=== PATIENT | female | born 1985 | race Caucasian/White ===

== ENCOUNTER 2025-04-16 18:35 | Emergency (ER) | payer BC ==
[2025-04-16 18:48] VITALS: TEMP 98.2
[2025-04-16] MEDS ORDERED: TORAdol 30 mg Injection ONE (19:04)
[2025-04-16] MEDS ORDERED: PROTONIX 40 MG IV IV ONE (19:05)
[2025-04-16] MEDS: TORAdol 30 mg Injection IV ONE (19:13)
[2025-04-16] MEDS: PROTONIX 40 MG IV IV ONE (19:13)
[2025-04-16 19:17] LABS: BASOPHIL % 0.4 % (0.1-1.2); Basophil (Absolute #) 0.02 x10^3/uL (0.01-0.08); Eosinophil (Absolute #) 0.03 x10^3/uL (0.04-0.36); Hematocrit 46.6 % (34.1-44.9); Hemoglobin 15.5 g/dL (11.2-15.7); IMMATURE GRAN # 0.02 x10^3u/L (0.001-0.031); IMMATURE GRAN % 0.4 % (0.001-0.429); Lymphocyte (Absolute #) 1.44 x10^3/uL (1.18-3.74); Mean Corpuscular Hemoglobin 28.5 pg (25.6-32.2); Mean Corpuscular Hgb Concent. 33.3 g/dL (32.2-35.5); Monocyte (Absolute #) 0.45 x10^3/uL (0.24-0.86); NUCLEATED RBC # 0.00 x10^3u/L (0.00-0.012); NUCLEATED RBC % 0.0 % (0.00-0.2); Platelet Count 243 x10^3/uL (182-369); Red Blood Count 5.43 x10^6/uL (3.93-5.22); White Blood Count 5.6 x10^3/uL (3.98-10.04)
[2025-04-16 19:23] LABS: Glucose, Urine Negative (Negative); Protein,Urine Dip Trace (Negative); RBC 0-2 /HPF (0-5); WBC 0-2 /HPF (0-5)
[2025-04-16 19:30] LABS: Calcium 9.6 mg/dL (8.4-10.2); Carbon Dioxide 27.0 mmol/L (22-30); Creatinine 1 0.78 mg/dL (0.52-1.04); EST GLOMERULAR FILTRATION RATE 100.3 ML/MIN; Glucose 138.0 mg/dL (74-106); Potassium 4.6 mmol/L (3.5-5.1); SGOT/AST 53.0 U/L (14-36); SGPT/ALT 54.0 U/L (0-35); Total Protein 8.7 g/dL (6.3-8.2)
--- NOTE | 2025-04-16 19:30 | ERPHSYRPT ---
- History of Present Illness Time Seen by Provider: 04/16/25 19:24 Historian: patient Exam Limitations: no limitations Patient Subjective Stated Complaint: Pt. states, "I started vomiting on Tuesday. I hadn't had a bowel movement since Tuesday which isn't unsual for me. I thought I was constipated and that's why I was vomiting. I took a laxative early tuesday morning. Ever since, I have continued to vomit have loose stools and feel nauseated. I can't keep anything down. It hurts in my left side and into my lower back. My head hurts as well." Triage Nursing Assessment: Pt. ambulated to room without difficulty, A&Ox3, Skin P/W/D, Resp. even unlabored, Abdomen soft nontender with hyperactive bowel sounds. No edema. Mucous Membranes Dry. Able to move all four ext and speak full sentences. Physician History: Patient is a 39-year-old female history of hypertension cholecystectomy hysterectomy presents to our ED for evaluation of generalized bodyaches, vomiting, loose stools nausea left flank and lower abdominal pain. No trauma no fever. Symptoms are mild to moderate in intensity. No specific worsening or improving factors. Patient voices no other complaints or concerns at this time. Portions of this note were created with voice recognition technology. There may be grammatical, spelling, punctuation or sound alike errors Timing/Duration: day(s) (3 days) Activities at Onset: none Quality: aching Abdominal Pain Onset Location: flank Pain Radiation: back Severity of Pain-Max: moderate Severity of Pain-Current: mild Modifying Factors: Improves With: nothing Associated Symptoms: other (Body aches) Previous symptoms: no prior history Allergies/Adverse Reactions: No Known Drug Allergies Allergy (Verified 04/16/25 19:06) Home Medications: Lisinopril 10 mg [Zestril 10 MG] 10 mg PO DAILY 04/16/25 [History] Hx Tetanus, Diphtheria Vaccination/Date Given: No Hx Influenza Vaccination/Date Given: No Hx Pneumococcal Vaccination/Date Given: No Travel Risk - International Travel Have you traveled outside of the country in past 3 weeks: No - Emerging Infectious Disease Are you exhibiting symptoms associated with any current EIDs: No - Review of Systems All Other Systems: Reviewed and Negative - Past Medical History Pertinent Past Medical History: Yes Cardiac History: Hypertension - Past Surgical History Past Surgical History: Yes Gastrointestinal: Cholecystectomy Female Surgical History: Hysterectomy, Section - Female History Hx Last Menstrual Period: hysterectomy Hx Now: No - Social History Smoking Status: Never smoker Exposure to second hand smoke: No Drug Use: none - Social Determinants of Health Will the patient participate in the screening: Yes Do you worry about a steady place to live?: No Do you have any problems with any of the following?: No known problems In the past 12 months,have you had to go without utilities?: No Transportation Issues: No Has anyone in your support network made you feel unsafe?: No Have you or anyone in your house had to go w/o enough food: No - Nursing Vital Signs Nursing Vital Signs: Initial Vital Signs Temperature 98.2 F 04/16/25 18:35 Pulse Rate 94 H 04/16/25 18:35 Respiratory Rate 16 04/16/25 18:35 Blood Pressure 146/119 04/16/25 18:35 O2 Sat by Pulse Oximetry 96 04/16/25 18:35 Pain Scale Pain Intensity 8 - Physical Exam General Appearance: no apparent distress, alert Eye Exam: PERRL/EOMI, eyes nml inspection Ears, Nose, Throat Exam: normal ENT inspection, moist mucous membranes Neck Exam: normal inspection, full range of motion Respiratory Exam: normal breath sounds, lungs clear, airway intact, No respiratory distress Cardiovascular Exam: regular rate/rhythm, normal heart sounds Gastrointestinal/Abdomen Exam: soft, tenderness, other (left flank mild left- sided flank tenderness), No mass Back Exam: normal inspection, normal range of motion, No CVA tenderness, No vertebral tenderness Extremity Exam: normal inspection, normal range of motion, pelvis stable Neurologic Exam: alert, oriented x 3, cooperative, normal mood/affect, sensation nml, No motor deficits Skin Exam: normal color, warm, dry SpO2 Interpretation: normal SpO2: 96 O2 Delivery: Room Air - Course Nursing assessment & vital signs reviewed: Yes - CT Exams Abdomen/Pelvis CT Interpretation: Tele-radiologist Report (No comps. Subcentimeter mid abdomen mesenteric nodes with stranding favors mesenteric adenitis. Bilateral L5 spondylosis with out listhesis. Remaining abdomen pelvis negative) Ordered Tests: Active Orders 24 hr Category Date Time Status IV Insertion STAT Care 04/16/25 18:50 Active ABDOMEN AND PELVIS W/0 CONTRAS [CT] Stat Exams 04/16/25 18:51 Taken CBC W DIFF Stat Lab 04/16/25 19:00 Completed CMP Stat Lab 04/16/25 19:00 Completed LIPASE Stat Lab 04/16/25 19:00 Completed MONO SCREEN Stat Lab 04/16/25 19:00 Completed TROPONIN Q4H Lab 04/16/25 19:00 Completed TROPONIN Q4H Lab 04/16/25 23:00 Ordered TROPONIN Q4H Lab 04/17/25 03:00 Ordered UA W/RFX UR CULTURE Stat Lab 04/16/25 18:51 Completed Medication Summary Generic Name Dose Route Start Last Admin Trade Name Freq PRN Reason Stop Dose Admin Sodium Chloride 1,000 mls @ 100 mls/hr 04/16/25 19:00 04/16/25 19:15 Sodium Chloride 0.9% 1000 Ml IV 05/16/25 18:59 100 mls/hr .Q10H DEIDRA Administration Discontinued Medications Generic Name Dose Route Start Last Admin Trade Name Freq PRN Reason Stop Dose Admin Ketorolac Tromethamine 30 mg 04/16/25 18:50 04/16/25 19:13 Ketorolac Tromethamine 30 Mg/Ml Inj IV 04/16/25 18:51 30 mg STAT ONE Administration Ketorolac Tromethamine Confirm 04/16/25 19:04 Ketorolac Tromethamine 30 Mg/Ml Inj Administered 04/16/25 19:05 Dose 30 mg .ROUTE .STK-MED ONE Pantoprazole Sodium 40 mg 04/16/25 18:50 04/16/25 19:13 Pantoprazole 40 Mg Vial IV 04/16/25 18:51 40 mg STAT ONE Administration Pantoprazole Sodium Confirm 04/16/25 19:05 Pantoprazole 40 Mg Vial Administered 04/16/25 19:06 Dose 40 mg IV .STK-MED ONE Lab/Rad Data: Laboratory Result Diagrams 04/16/25 19:00 04/16/25 19:00 Laboratory Results 04/16/25 04/16/25 04/16/25 Range/Units 19:00 19:00 19:00 WBC (3.98-10.04) x10^3/uL RBC (3.93-5.22) x10^6/uL Hgb (11.2-15.7) g/dL Hct (34.1-44.9) % MCV (79.4-94.8) fL MCH (25.6-32.2) pg MCHC (32.2-35.5) g/dL RDW (11.7-14.4) % Plt Count (182-369) x10^3/uL MPV (9.4-12.3) fL Gran % (34.0-71.1) % Immature Gran % (Auto) (0.001-0.429) % Nucleat RBC Rel Count (0.00-0.2) % Eos # (Auto) (0.04-0.36) x10^3/uL Immature Gran # (Auto) (0.001-0.031) x10^3u/L Absolute Lymphs (auto) (1.18-3.74) x10^3/uL Absolute Monos (auto) (0.24-0.86) x10^3/uL Absolute Nucleated RBC (0.00-0.012) x10^3u/L Lymphocytes % (19.3-51.7) % Monocytes % (4.7-12.5) % Eosinophils % (0.7-5.8) % Basophils % (0.1-1.2) % Absolute Granulocytes (1.56-6.13) x10^3/uL Basophils # (0.01-0.08) x10^3/uL Sodium (135-145) mmol/L Potassium (3.5-5.1) mmol/L Chloride (98-107) mmol/L Carbon Dioxide (22-30) mmol/L Anion Gap (5-15) MEQ/L BUN (7-17) mg/dL Creatinine (0.52-1.04) mg/dL Estimated GFR ML/MIN Glucose (74-106) mg/dL Calcium (8.4-10.2) mg/dL Total Bilirubin (0.2-1.3) mg/dL AST (14-36) U/L ALT (0-35) U/L Alkaline Phosphatase (38-126) U/L Troponin I < 0.012 (0.000-0.033) ng/mL Serum Total Protein (6.3-8.2) g/dL Albumin (3.5-5.0) g/dL Lipase (23-300) U/L Urine Color (Yellow) Urine Appearance (Clear) Urine pH (4.6-8.0) Ur Specific [place] (1.005-1.030) Urine Protein (Negative) Urine Glucose (UA) (Negative) mg/dL Urine Ketones (Negative) Urine Blood (Negative) Urine Nitrite (Negative) Urine Bilirubin (Negative) Urine Urobilinogen (0.2) mg/dL Ur Leukocyte Esterase (Negative) U Hyaline Cast (Auto) (0-2) /LPF Urine Microscopic RBC (0-5) /HPF Urine Microscopic WBC (0-5) /HPF Ur Epithelial Cells (None Seen) /HPF Urine Bacteria (None Seen) /HPF Urine Culture Reflexed (NO) Monoscreen NEGATIVE (NEGATIVE) Influenza Type A Ag NEGATIVE (NEGATIVE) Influenza Type B Ag NEGATIVE (NEGATIVE) RSV (PCR) NEGATIVE (NEGATIVE) SARS-CoV-2 (PCR) NEGATIVE (NEGATIVE) 04/16/25 04/16/25 04/16/25 Range/Units 19:00 19:00 18:51 WBC 5.6 (3.98-10.04) x10^3/uL RBC 5.43 H (3.93-5.22) x10^6/uL Hgb 15.5 (11.2-15.7) g/dL Hct 46.6 H (34.1-44.9) % MCV 85.8 (79.4-94.8) fL MCH 28.5 (25.6-32.2) pg MCHC 33.3 (32.2-35.5) g/dL RDW 12.5 (11.7-14.4) % Plt Count 243 (182-369) x10^3/uL MPV 10.9 (9.4-12.3) fL Gran % 64.8 (34.0-71.1) % Immature Gran % (Auto) 0.4 (0.001-0.429) % Nucleat RBC Rel Count 0.0 (0.00-0.2) % Eos # (Auto) 0.03 L (0.04-0.36) x10^3/uL Immature Gran # (Auto) 0.02 (0.001-0.031) x10^3u/L Absolute Lymphs (auto) 1.44 (1.18-3.74) x10^3/uL Absolute Monos (auto) 0.45 (0.24-0.86) x10^3/uL Absolute Nucleated RBC 0.00 (0.00-0.012) x10^3u/L Lymphocytes % 25.8 (19.3-51.7) % Monocytes % 8.1 (4.7-12.5) % Eosinophils % 0.5 L (0.7-5.8) % Basophils % 0.4 (0.1-1.2) % Absolute Granulocytes 3.63 (1.56-6.13) x10^3/uL Basophils # 0.02 (0.01-0.08) x10^3/uL Sodium 137 (135-145) mmol/L Potassium 4.6 (3.5-5.1) mmol/L Chloride 99 (98-107) mmol/L Carbon Dioxide 27 (22-30) mmol/L Anion Gap 15.9 H (5-15) MEQ/L BUN 21 H (7-17) mg/dL Creatinine 0.78 (0.52-1.04) mg/dL Estimated GFR 100.3 ML/MIN Glucose 138 H (74-106) mg/dL Calcium 9.6 (8.4-10.2) mg/dL Total Bilirubin 1.50 H (0.2-1.3) mg/dL AST 53 H (14-36) U/L ALT 54 H (0-35) U/L Alkaline Phosphatase 39 (38-126) U/L Troponin I (0.000-0.033) ng/mL Serum Total Protein 8.7 H (6.3-8.2) g/dL Albumin 5.2 H (3.5-5.0) g/dL Lipase 65 (23-300) U/L Urine Color Yellow (Yellow) Urine Appearance Clear (Clear) Urine pH 5.5 (4.6-8.0) Ur Specific [place] >=1.030 A (1.005-1.030) Urine Protein Trace A (Negative) Urine Glucose (UA) Negative (Negative) mg/dL Urine Ketones Trace A (Negative) Urine Blood Negative (Negative) Urine Nitrite Negative (Negative) Urine Bilirubin Negative (Negative) Urine Urobilinogen 1.0 A (0.2) mg/dL Ur Leukocyte Esterase Negative (Negative) U Hyaline Cast (Auto) NONE SEEN (0-2) /LPF Urine Microscopic RBC 0-2 (0-5) /HPF Urine Microscopic WBC 0-2 (0-5) /HPF Ur Epithelial Cells Few (None Seen) /HPF Urine Bacteria None Seen (None Seen) /HPF Urine Culture Reflexed NO (NO) Monoscreen (NEGATIVE) Influenza Type A Ag (NEGATIVE) Influenza Type B Ag (NEGATIVE) RSV (PCR) (NEGATIVE) SARS-CoV-2 (PCR) (NEGATIVE) - Progress Progress: improved Progress Note: 04/16/25 20:38 Patient is a 39-year-old female history of hypertension cholecystectomy hysterectomy presents to our ED for evaluation of generalized bodyaches, vomiting, loose stools nausea left flank and lower abdominal pain. No trauma no fever. Physical exam reveals mild left-sided flank tenderness. Physical exam suggestive of dehydration likely secondary to nausea vomiting and diarrhea. BUN/creatinine ratio greater than 20. Specific gravity elevated in urine. CT scan reveals mesenteric nodes with stranding favoring mesenteric adenitis. IV fluids infused. AST ALT and total bili marginally elevated. This will need outpatient follow-up with primary care physician for reassessment. Patient reassessed. Symptoms significantly improved. Patient states he is ready for discharge. No indication for further workup. Will discharge home. Patient to maintain oral rehydration at home. A prescription for Zofran and pantoprazole forwarded to patient's pharmacy. Impression is viral gastroenteritis dehydration and mesenteric adenitis. History obtained from patient. Differential diagnosis includes intestinal colic, mesenteric adenitis, colitis, diverticulitis, gastroenteritis Portions of this note were created with voice recognition technology. There may be grammatical, spelling, punctuation or sound alike errors Complexity of problems addressed is moderate acute complicated. No critical care time. Complex of data reviewed and analyzed is moderate. Test ordered chest reviewed results analyzed and correlated clinically with history and physical exam. Risk of complication or risk of morbidity/mortality of patient management is moderate. A prescription for Zofran and pantoprazole forwarded to patient's pharmacy. Vital stable. Time spent to discharge patient is approximately 15 minutes. Plan of care established for shared decision making. No social determinants of health present to impede follow-up. Portions of this note were created with voice recognition technology. There may be grammatical, spelling, punctuation or sound alike errors 04/16/25 20:39 Counseled pt/family regarding: lab results, diagnosis, need for follow-up, rad results - Departure Departure Disposition: Home Clinical Impression: Viral gastroenteritis, Dehydration, Mesenteric adenitis, Flank pain Condition: Stable Critical Care Time: No Referrals: GABRIEL KISER, [employer] [Primary Care Provider, UNKNOWN] - Follow up/PCP as directed Additional Instructions: Discharge/Care Plan LILIANA ANDERSON was seen on 04/16/25 in the Emergency Room. The patient was counseled regarding Diagnosis,Lab results, Imaging studies, need for follow up and when to return to the Emergency Room. Prescriptions given: Discharge Note I have spoken with the patient and/or caregivers. I have explained the patient's condition, diagnosis and treatment plan based on the information available to me at this time. I have answered the patient's and/or caregiver's questions and addressed any concerns. The patient and/or caregivers have as good understanding of the patient's diagnosis, condition and treatment plan as can be expected at this point. The vital signs have been stable. The patient's condition is stable and appropriate for discharge from the emergency department. The patient will pursue further outpatient evaluation with the primary care physician or other designated or consulting physician as outlined in the discharge instructions. The patient and/or caregivers are agreeable to this plan of care and follow-up instructions have been explained in detail. The patient and/or caregivers have received these instruction. The patient/and or caregivers are aware that any significant change in condition or worsening of symptoms should prompt an immediate return to this or the closest emergency department or call 911. Prescriptions: Ondansetron ODT 4 MG [Zofran Odt 4 mg] 4 mg PO Q6H PRN PRN #10 tablet PRN Reason: Nausea PANTOPRAZOLE 40 mg Tablet [Protonix 40MG Tablet] 40 mg PO DAILY 7 Days #14 tab
[2025-04-16 19:52] LABS: INFLUENZA A NEGATIVE (NEGATIVE); INFLUENZA B NEGATIVE (NEGATIVE); RESPIRATORY SYNCTIAL VIRUS NEGATIVE (NEGATIVE); SARS-CoV-2 Xpert Express NEGATIVE (NEGATIVE)
[2025-04-16 21:49] VITALS: BP 116/75; PULSE 80; RESP 15; O2SAT 97
--- NOTE | 2025-04-17 08:45 | XRAY ---
Indication: Pain. Multiple contiguous axial images obtained through the abdomen and pelvis without contrast. Comparison: None Lung bases demonstrates minimal dependent atelectasis. No infiltrate or effusion. Heart not enlarged. Noncontrasted stomach and bowel loops appear nonobstructed. Appendix not visualized. Left midabdomen demonstrates subcentimeter mesenteric nodes with stranding favoring adenitis. Previous cholecystectomy and hysterectomy. No free fluid/air. Remaining liver, pancreas, spleen, adrenal glands, kidneys, ureters, bladder, and aorta are unremarkable for noncontrast exam. Osseous structures intact with incidental bilateral L5 spondylolysis without listhesis. No ventral or inguinal hernias. Impression: 1. Tiny mesenteric nodes with stranding favoring mesenteric adenitis. 2. Incidental L5 spondylolysis without listhesis. 3. Remaining CT abdomen/pelvis without contrast exam is negative.
== END 2025-04-16 21:50 | disposition home or self-care (01) ==
LOC: ED 18:35
DX: A08.4 Viral intestinal infection, unspecified (principal); E86.0 Dehydration; I88.0 Nonspecific mesenteric lymphadenitis; R10.A2 Flank pain, left side; M79.10 Myalgia, unspecified site; R11.2 Nausea with vomiting, unspecified; R10.30 Lower abdominal pain, unspecified; I10 Essential (primary) hypertension; Z79.899 Other long term (current) drug therapy